=== PATIENT | male | born 1970 | race African-American/Black ===

== ENCOUNTER 2018-04-20 12:33 | Inpatient (IN) | payer OTHER ==
[2018-04-20 13:18] VITALS: BMI 27.1
--- NOTE | 2018-04-20 15:48 | HP ---
CIWA Score - CIWA Score Nausea/Vomitin Muscle Tremors: 3 Anxiety: 3 Agitation: 3 Paroxysmal Sweats: 1-Minimal Palms Moist Orientation: 0-Oriented Tacttile Disturbances: 1-Very Mild Itch/Numbness Auditory Disturbances: 1-Very Mild Visual Disturbances: 0-None Headache: 2-Mild CIWA-Ar Total Score: 17 Admission ROS BHS - HPI Chief Complaint: i need help to stop drinking alcohol and cocaine Allergies/Adverse Reactions: Allergies Allergy/AdvReac Type Severity Reaction Status Date / Time No Known Allergies Allergy Verified 04/20/18 15:37 History of Present Illness: this 47 years old male with alcohol and cocaine dependence,seeking detox, withdrawal symptom,last detox in 2007 unknown facility in the [place] syncope alcohol related mmtp 70 mgs/day,last medicated today weight loss longest period of sobriety 7 years anxiety,depression,insomnia Exam Limitations: No Limitations - Ebola screening Have you traveled outside of the country in the last 21 days: No Have you had contact with anyone from an Ebola affected area: No Have you been sick,other than usual withdrawal symptoms: No Do you have a fever: No - Review of Systems Constitutional: Loss of Appetite, Malaise, Night Sweats, Changes in sleep, Weakness, Unintentional Wgt. Loss EENT: reports: Nose Congestion Respiratory: reports: No Symptoms reported Cardiac: reports: No Symptoms Reported GI: reports: Diarrhea, Nausea, Poor Appetite, Abdominal cramping : reports: No Symptoms Reported Musculoskeletal: reports: Back Pain, Joint Pain, Muscle Pain Integumentary: reports: Dryness Endocrine: reports: No Symptoms Reported Hematology: reports: No Symptoms Reported Psychiatric: reports: Judgement Intact, Mood/Affect Appropiate, Orientated x3 ( insomnia), Anxious, Depressed Patient History - Patient Medical History Hx Anemia: No Hx Asthma: No Hx Chronic Obstructive Pulmonary Disease (COPD): No Hx Cancer: No Hx Cardiac Disorders: No Hx Congestive Heart Failure: No Hx Hypertension: No Hx Hypercholesterolemia: Yes (no med) Hx Pacemaker: No HX Cerebrovascular Accident: No Hx Seizures: No Hx Dementia: No Hx Diabetes: No Hx Gastrointestinal Disorders: No Hx Liver Disease: No Hx Genitourinary Disorders: No Hx Sexually Transmitted Disorders: No Hx Renal Disease (ESRD): No Hx Thyroid Disease: No Hx Human Immunodeficiency Virus (HIV): No (last 10/14 negative) Hx Hepatitis C: No Hx Depression: Yes (anxiety) Hx Suicide Attempt: No Hx Bipolar Disorder: No Hx Schizophrenia: No Other Medical History: no suicidal,no homicidal - Patient Surgical History Past Surgical History: Yes Other Surgical History: removal of cyst of scalp and face - PPD History Documented Results: Negative w/o proof PPD to be Administered?: Yes - Smoking Cessation Smoking history: Current every day smoker Have you smoked in the past 12 months: Yes Aproximately how many cigarettes per day: 10 Cigars Per Day: 0 Hx Chewing Tobacco Use: No Initiated information on smoking cessation: Yes 'Breaking Loose' booklet given: 04/20/18 - Substance & Tx. History Hx Alcohol Use: Yes Hx Substance Use: Yes Substance Use Type: Alcohol, Cocaine Hx Substance Use Treatment: Yes (2007 unknown facility in the [place]) - Substances Abused Alcohol Route: Oral Frequency: Daily Amount used: 6PK BEER Age of first use: 15 Date of Last Use: 04/19/18 Crack Route: Smoking Frequency: Daily Amount used: $50 Age of first use: 18 Date of Last Use: 04/19/18 Family Disease History - Family Disease History Family Disease History: Other: Father (alcohol,dsa,), Mother () Admission Physical Exam BHS - Vital Signs Vital Signs: Vital Signs - 24 hr 04/20/18 13:16 Temperature 98.8 F Pulse Rate 83 Respiratory 20 Rate Blood Pressure 141/86 - Physical General Appearance: Yes: Moderate Distress, Tremorous, Irritable, Sweating, Anxious HEENTM: Yes: Normal ENT Inspection, ZECHARIAH, Pharynx Normal Respiratory: Yes: Lungs Clear, Normal Breath Sounds, No Respiratory Distress Neck: Yes: Within Normal Limits, Supple, Trachea in good position Breast: Yes: Within Normal Limits Cardiology: Yes: Within Normal Limits, Regular Rhythm, Regular Rate, S1, S2 Abdominal: Yes: Within Normal Limits, Normal Bowel Sounds, Non Tender, Flat, Soft Genitourinary: Yes: Within Normal Limits Back: Yes: Muscle Spasm Musculoskeletal: Yes: Back pain, Muscle Pain Extremities: Yes: Tremors Neurological: Yes: facetor II-XII NML intact, Fully Oriented, Alert, Motor Strength 5/5 Integumentary: Yes: Dry Lymphatic: Yes: Within Normal Limits - Diagnostic (1) Alcohol dependence with uncomplicated withdrawal Current Visit: Yes Status: Acute (2) Cocaine dependence Current Visit: Yes Status: Acute (3) Methadone maintenance therapy patient Current Visit: Yes Status: Acute (4) Nicotine dependence Current Visit: Yes Status: Acute Cleared for Admission [facility] - Detox or Rehab [facility] Level of Care: Medically Managed Detox Regimen/Protocol: Librium [facility] Breath Alcohol Content Breath Alcohol Content: 0 Urine Drug Screen - Results Drug Screen Negative: No Urine Drug Screen Results: LALY-Cocaine, OPI-Opiates, MTD-Methadone
[2018-04-20] MEDS ORDERED: ACETAMINOPHEN 325 MG TABLET (FP) PO PRN (16:02)
[2018-04-20] MEDS ORDERED: MENTHOL/PHENOL 1 EACH UD MM PRN (16:02)
[2018-04-20] MEDS ORDERED: LOPERAMIDE HCL 2 MG CAPSULE PO PRN (16:02)
[2018-04-20] MEDS ORDERED: IBUPROFEN 400 MG TABLET (FP) PO PRN (16:02)
[2018-04-20] MEDS ORDERED: hydrOXYzine PAMOATE 50 MG CAPSULE (FP) PO PRN (16:02)
[2018-04-20] MEDS ORDERED: MAG HYDROX/AL HYDROX/SIMETH 30 ML UNIT-DOSE CUP PO PRN (16:02)
[2018-04-20] MEDS ORDERED: MAGNESIUM CITRATE 300 ML BOTTLE PO PRN (16:02)
[2018-04-20] MEDS ORDERED: MAGNESIUM HYDROX 2400MG/30ML ORAL SUSPENSION 30 ML CUP PO PRN (16:02)
[2018-04-20] MEDS ORDERED: chlordiazePOXIDE HCL 25 MG CAPSULE PO PRN (16:02)
[2018-04-20] MEDS ORDERED: P-EPHED 60MG/TRIPROLIDI 2.5MG TABLET PO PRN (16:02)
[2018-04-20] MEDS ORDERED: guaiFENesin/D-METHORPHAN HB 10 ML UNIT-DOSE CUPS PO PRN (16:02)
[2018-04-20] MEDS ORDERED: chlordiazePOXIDE HCL 25 MG CAPSULE PO ONE (16:30)
[2018-04-20] MEDS: chlordiazePOXIDE HCL 25 MG CAPSULE PO SCH ×2 (17:42→22:27)
[2018-04-20] MEDS ORDERED: MELATONIN 5 MG TABLETS PO PRN (22:00)
[2018-04-20] MEDS: THIAMINE HCL 100 MG TABLET (FP) PO SCH (22:29)
[2018-04-20 22:39] LABS: URINE APPEARANCE SLCLOUDY; URINE BILIRUBIN NEGATIVE (<2.0 mg/dL); URINE COLOR YELLOW; URINE GLUCOSE (UA) NEGATIVE (NEGATIVE); URINE KETONE NEGATIVE (NEGATIVE); URINE LEUK ESTERASE NEGATIVE (NEGATIVE); URINE NITRITE NEGATIVE (NEGATIVE); URINE PROTEIN NEGATIVE (NEGATIVE); URINE UROBILINOGEN NEGATIVE mg/dL (0.2-1.0)
[2018-04-21] MEDS: chlordiazePOXIDE HCL 25 MG CAPSULE PO SCH ×4 (06:14→22:24)
[2018-04-21 10:08] LABS: HEMATOCRIT 39.3 % (35.4-49); MCH 30.6 pg (25.7-33.7); MCHC 32.9 g/dl (32.0-35.9); MEAN CELL VOLUME 92.8 fl (80-96); MEAN PLT VOLUME 7.1 fl (7.5-11.1); PLATELET COUNT 333 K/MM3 (134-434); RBC 4.24 M/mm3 (4.00-5.60); RDW 14.9 % (11.9-15.9); WHITE BLOOD COUNT 8.2 K/mm3 (4.0-10.0)
[2018-04-21] MEDS: PRENATAL VITAMINS W/ FOLIC ACID TABLET (FP) PO SCH (10:08)
[2018-04-21 10:19] LABS: ALBUMIN 3.3 g/dl (3.4-5.0); ANION GAP 9 (8-16); BILIRUBIN,TOTAL 0.1 mg/dL (0.2-1.0); BLOOD UREA NITROGEN 17 mg/dL (7-18); CALCIUM 8.4 mg/dL (8.5-10.1); CHLORIDE 108 mmol/L (98-107); CO2 25 mmol/L (21-32); GLUCOSE,RANDOM 160 mg/dL (74-106); POTASSIUM 3.9 mmol/L (3.5-5.1); SGOT/AST 11 U/L (15-37); SGPT/ALT 20 U/L (12-78); SODIUM 142 mmol/L (136-145); TOT PROT 6.7 g/dl (6.4-8.2)
[2018-04-21 10:21] LABS: ALK PHOS 91 U/L (45-117)
--- NOTE | 2018-04-21 11:30 | EKG ---
Test Reason : Blood Pressure : / mmHG Vent. Rate : 068 BPM Atrial Rate : 068 BPM P-R Int : 154 ms QRS Dur : 086 ms QT Int : 386 ms P-R-T Axes : 057 040 037 degrees QTc Int : 410 ms NORMAL SINUS RHYTHM NONSPECIFIC T WAVE ABNORMALITY RSR' OR QR PATTERN IN V1 SUGGESTS RIGHT VENTRICULAR CONDUCTION DELAY ABNORMAL ECG NO PREVIOUS ECGS AVAILABLE Confirmed by FRANCES CHAKRABORTY MD ([id number]) on 04/21/2018 11:29:51 AM Referred By: Confirmed By:FRANCES CHAKRABORTY MD
--- NOTE | 2018-04-21 16:51 | PN ---
S CIWA - CIWA Score Nausea/Vomitin Muscle Tremors: 3 Anxiety: 4-Mod. Anxious/Guarded Agitation: 3 Paroxysmal Sweats: No Perspiration Orientation: 2-Disoriented Date<2 days Tacttile Disturbances: 2-Mild Itch/Numbness/Burn Auditory Disturbances: 0-None Visual Disturbances: 0-None Headache: 0-None Present CIWA-Ar Total Score: 17 BHS Progress Note (SOAP) Subjective: Nausea, Tremors, Anxious. Objective: PATIENT A & O X 2 (UNCERTAIN ABOUT CURRENT DAY / DATE). PATIENT OBSERVED AMBULATING ON UNIT. NO ACUTE DISTRESS. 04/21/18 16:52 Vital Signs Temperature 98.1 F 04/21/18 13:57 Pulse Rate 71 04/21/18 13:57 Respiratory Rate 16 04/21/18 13:57 Blood Pressure 133/71 04/21/18 13:57 O2 Sat by Pulse Oximetry (%) Laboratory Tests 04/20/18 04/21/18 04/21/18 22:30 07:50 07:50 WBC 8.2 RBC 4.24 Hgb 13.0 Hct 39.3 MCV 92.8 MCH 30.6 MCHC 32.9 RDW 14.9 Plt Count 333 MPV 7.1 L Sodium Potassium Chloride Carbon Dioxide Anion Gap BUN Creatinine Creat Clearance w eGFR Random Glucose Calcium Total Bilirubin AST ALT Alkaline Phosphatase Total Protein Albumin Urine Color Yellow Urine Appearance Slcloudy Urine pH 5.0 Ur Specific [place] 1.029 Urine Protein Negative Urine Glucose (UA) Negative Urine Ketones Negative Urine Blood Negative Urine Nitrite Negative Urine Bilirubin Negative Urine Urobilinogen Negative Ur Leukocyte Esterase Negative RPR Titer HIV 1&2 Antibody Screen Negative HIV P24 Antigen Negative 04/21/18 04/21/18 07:50 07:50 WBC RBC Hgb Hct MCV MCH MCHC RDW Plt Count MPV Sodium 142 Potassium 3.9 Chloride 108 H Carbon Dioxide 25 Anion Gap 9 BUN 17 Creatinine 1.0 Creat Clearance w eGFR > 60 Random Glucose 160 H Calcium 8.4 L Total Bilirubin 0.1 L AST 11 L ALT 20 Alkaline Phosphatase 91 Total Protein 6.7 Albumin 3.3 L Urine Color Urine Appearance Urine pH Ur Specific [place] Urine Protein Urine Glucose (UA) Urine Ketones Urine Blood Urine Nitrite Urine Bilirubin Urine Urobilinogen Ur Leukocyte Esterase RPR Titer Nonreactive HIV 1&2 Antibody Screen HIV P24 Antigen LABS NOTED. Assessment: 04/21/18 16:53 WITHDRAWAL SYMPTOMS. Plan: CONTINUE DETOX. BGM ACBK FOR ELEVATED ADMISSION RANDOM GLUCOSE LEVEL.
--- NOTE | 2018-04-21 17:07 | CONSULT ---
[facility] Psychiatric Consult - Data Date of interview: 04/21/18 Admission source: [facility] Identifying data: First admission to [facility] for this 47 y/o AA male seeking detox treatment on for opioid,cocaine (crack) and alcohol dependence.Patient is a common-law ,a father of eight,homeless, unemployed and supported on Public Assistance. Substance Abuse History: Confirmed by patient in this session.Smoking history: Current every day smoker. Have you smoked in the past 12 months: Yes. Aproximately how many cigarettes per day: 10. Cigars Per Day: 0. Hx Chewing Tobacco Use: No. Initiated information on smoking cessation: Yes. 'Breaking Loose' booklet given: 04/20/18. - Substance & Tx. History. Hx Alcohol Use: Yes. Hx Substance Use: Yes. Substance Use Type: Alcohol, Cocaine. Hx Substance Use Treatment: Yes (2007 unknown facility in the [place]). - Substances Abused. Alcohol. Route: Oral. Frequency: Daily. Amount used: 6PK BEER. Age of first use: 15. Date of Last Use: 04/19/18. Crack. Route : Smoking. Frequency: Daily. Amount used: $50. Age of first use: 18. Date of Last Use: 04/19/18 Medical History: Dyslipidemia and a history of surgical excision of cysts (face + scalp). Psychiatric History: Patient denies history of psychiatric hospitalizations or suicide attempts.Mr Goodman is currently on methadone maintenance (70 mg/day). Physical/Sexual Abuse/Trauma History: Patient denies. Additional Comment: Urine Drug Screen Results: LALY-Cocaine, OPI-Opiates, MTD- Methadone.Noted. Mental Status Exam - Mental Status Exam Alert and Oriented to: Time, Place, Person Cognitive Function: Good Patient Appearance: Well Groomed Mood: Withdrawn, Hopeful Affect: Appropriate, Normal Range Patient Behavior: Fatigued, Appropriate, Cooperative Speech Pattern: Clear Voice Loudness: Normal Thought Process: Intact, Goal Oriented Thought Disorder: Not Present Hallucinations: Denies Suicidal Ideation: Denies Homicidal Ideation: Denies Insight/Judgement: Poor Sleep: Poorly, Difficulty falling asleep Appetite: Good Muscle strength/Tone: Normal Gait/Station: Normal Psychiatric Findings - Problem List ([place] 1, 2,3) (1) Opioid dependence on agonist therapy Status: Acute (2) Alcohol dependence with uncomplicated withdrawal Status: Acute (3) Cocaine dependence Status: Chronic Qualifiers: Substance use status: uncomplicated Qualified Code(s): F14.20 - Cocaine dependence, uncomplicated (4) Nicotine dependence Status: Chronic Qualifiers: Nicotine product type: cigarettes Substance use status: uncomplicated Qualified Code(s): F17.210 - Nicotine dependence, cigarettes, uncomplicated (5) Insomnia Status: Acute - Initial Treatment Plan Initial Treatment Plan: Psychoeducation.Sleep hygiene.Detoxification in progress.Insomnia is addressed with melatonin 5 mg po hs prn.Side effects/ benefits revisited with the patient.Mr Goodman agrees to this careplan.Observation.
[2018-04-21] MEDS: THIAMINE HCL 100 MG TABLET (FP) PO SCH (22:24)
[2018-04-22] MEDS: chlordiazePOXIDE HCL 25 MG CAPSULE PO SCH ×2 (06:06→10:24)
[2018-04-22] MEDS: PRENATAL VITAMINS W/ FOLIC ACID TABLET (FP) PO SCH (10:24)
--- NOTE | 2018-04-22 16:22 | PN ---
S CIWA - CIWA Score Nausea/Vomitin Muscle Tremors: 3 Anxiety: 4-Mod. Anxious/Guarded Agitation: 2 Paroxysmal Sweats: No Perspiration Orientation: 0-Oriented Tacttile Disturbances: 1-Very Mild Itch/Numbness Auditory Disturbances: 2-Mild Harshness/Frighten Visual Disturbances: 1-Very Mild Sensitivity Headache: 0-None Present CIWA-Ar Total Score: 16 BHS Progress Note (SOAP) Subjective: Nausea, Tremors, Anxious, Fatigue. Objective: PATIENT A & O X 3, OBSERVED AMBULATING ON UNIT. NO ACUTE DISTRESS. 04/22/18 16:19 Vital Signs Temperature 98.5 F 04/22/18 14:04 Pulse Rate 88 04/22/18 14:04 Respiratory Rate 20 04/22/18 14:04 Blood Pressure 134/69 04/22/18 14:04 O2 Sat by Pulse Oximetry (%) Laboratory Tests 04/20/18 04/21/18 04/21/18 22:30 07:50 07:50 WBC 8.2 RBC 4.24 Hgb 13.0 Hct 39.3 MCV 92.8 MCH 30.6 MCHC 32.9 RDW 14.9 Plt Count 333 MPV 7.1 L Sodium Potassium Chloride Carbon Dioxide Anion Gap BUN Creatinine Creat Clearance w eGFR POC Glucometer Random Glucose Calcium Total Bilirubin AST ALT Alkaline Phosphatase Total Protein Albumin Urine Color Yellow Urine Appearance Slcloudy Urine pH 5.0 Ur Specific [place] 1.029 Urine Protein Negative Urine Glucose (UA) Negative Urine Ketones Negative Urine Blood Negative Urine Nitrite Negative Urine Bilirubin Negative Urine Urobilinogen Negative Ur Leukocyte Esterase Negative RPR Titer HIV 1&2 Antibody Screen Negative HIV P24 Antigen Negative 04/21/18 04/21/18 04/22/18 07:50 07:50 06:04 WBC RBC Hgb Hct MCV MCH MCHC RDW Plt Count MPV Sodium 142 Potassium 3.9 Chloride 108 H Carbon Dioxide 25 Anion Gap 9 BUN 17 Creatinine 1.0 Creat Clearance w eGFR > 60 POC Glucometer 220 Random Glucose 160 H Calcium 8.4 L Total Bilirubin 0.1 L AST 11 L ALT 20 Alkaline Phosphatase 91 Total Protein 6.7 Albumin 3.3 L Urine Color Urine Appearance Urine pH Ur Specific [place] Urine Protein Urine Glucose (UA) Urine Ketones Urine Blood Urine Nitrite Urine Bilirubin Urine Urobilinogen Ur Leukocyte Esterase RPR Titer Nonreactive HIV 1&2 Antibody Screen HIV P24 Antigen LABS NOTED. Assessment: 04/22/18 16:20 WITHDRAWAL SYMPTOMS. Plan: CONTINUE DETOX. INCREASE DAILY PO FLUID INTAKE. HGB A1C FOR ELEVATED BGM ACBK AND ELEVATED ADMISSION RANDOM GLUCOSE LEVEL.
[2018-04-22] MEDS: chlordiazePOXIDE 5 MG CAPSULE PO SCH ×2 (17:52→22:12)
[2018-04-22] MEDS: THIAMINE HCL 100 MG TABLET (FP) PO SCH (22:12)
[2018-04-23] MEDS: chlordiazePOXIDE 5 MG CAPSULE PO SCH ×2 (06:11→10:50)
[2018-04-23] MEDS ORDERED: METHADONE HCL 10 MG TABLET PO ONE (10:30)
[2018-04-23] MEDS ORDERED: metFORMIN HCL 500 MG TABLET (FP) PO ONE (10:45)
[2018-04-23] MEDS: PRENATAL VITAMINS W/ FOLIC ACID TABLET (FP) PO SCH (10:50)
[2018-04-23] MEDS: INSULIN SLIDING SCALE (NOVOLOG) 1 VIAL SQ SCH ×3 (12:45→18:33)
[2018-04-23] MEDS ORDERED: INSULIN (NOVOLOG) ASPART 100 UNITS/ML 10ML VIAL ONE (12:57)
--- NOTE | 2018-04-23 16:30 | PN ---
BHS Progress Note (SOAP) Subjective: Tremor, chills, sweating Objective: 04/23/18 16:25 Last Vital Signs Temp Pulse Resp BP Pulse Ox 98.1 F 84 20 121/75 04/23/18 09:44 04/23/18 09:44 04/23/18 09:44 04/23/18 09:44 Laboratory Tests 04/20/18 04/21/18 04/21/18 22:30 07:50 07:50 WBC 8.2 RBC 4.24 Hgb 13.0 Hct 39.3 MCV 92.8 MCH 30.6 MCHC 32.9 RDW 14.9 Plt Count 333 MPV 7.1 L Sodium Potassium Chloride Carbon Dioxide Anion Gap BUN Creatinine Creat Clearance w eGFR POC Glucometer Random Glucose Hemoglobin A1c % Calcium Total Bilirubin AST ALT Alkaline Phosphatase Total Protein Albumin Urine Color Yellow Urine Appearance Slcloudy Urine pH 5.0 Ur Specific [place] 1.029 Urine Protein Negative Urine Glucose (UA) Negative Urine Ketones Negative Urine Blood Negative Urine Nitrite Negative Urine Bilirubin Negative Urine Urobilinogen Negative Ur Leukocyte Esterase Negative RPR Titer HIV 1&2 Antibody Screen Negative HIV P24 Antigen Negative 04/21/18 04/21/18 04/22/18 07:50 07:50 06:04 WBC RBC Hgb Hct MCV MCH MCHC RDW Plt Count MPV Sodium 142 Potassium 3.9 Chloride 108 H Carbon Dioxide 25 Anion Gap 9 BUN 17 Creatinine 1.0 Creat Clearance w eGFR > 60 POC Glucometer 220 Random Glucose 160 H Hemoglobin A1c % Calcium 8.4 L Total Bilirubin 0.1 L AST 11 L ALT 20 Alkaline Phosphatase 91 Total Protein 6.7 Albumin 3.3 L Urine Color Urine Appearance Urine pH Ur Specific [place] Urine Protein Urine Glucose (UA) Urine Ketones Urine Blood Urine Nitrite Urine Bilirubin Urine Urobilinogen Ur Leukocyte Esterase RPR Titer Nonreactive HIV 1&2 Antibody Screen HIV P24 Antigen 04/23/18 04/23/18 04/23/18 06:13 07:45 12:54 WBC RBC Hgb Hct MCV MCH MCHC RDW Plt Count MPV Sodium Potassium Chloride Carbon Dioxide Anion Gap BUN Creatinine Creat Clearance w eGFR POC Glucometer 208 206 Random Glucose Hemoglobin A1c % 6.0 Calcium Total Bilirubin AST ALT Alkaline Phosphatase Total Protein Albumin Urine Color Urine Appearance Urine pH Ur Specific [place] Urine Protein Urine Glucose (UA) Urine Ketones Urine Blood Urine Nitrite Urine Bilirubin Urine Urobilinogen Ur Leukocyte Esterase RPR Titer HIV 1&2 Antibody Screen HIV P24 Antigen Labs reviewed: hyperglycemia Assessment: 04/23/18 16:26 Withdrawal symptoms Noted with 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
[2018-04-23] MEDS: chlordiazePOXIDE HCL 10 MG CAPSULE PO SCH ×2 (17:29→22:15)
[2018-04-23] MEDS: metFORMIN HCL 500 MG TABLET (FP) PO SCH (17:29)
[2018-04-23] MEDS: THIAMINE HCL 100 MG TABLET (FP) PO SCH (22:15)
[2018-04-24] MEDS ORDERED: METHADONE HCL 40 MG DISPERSABLE TABLET ONE (05:19)
[2018-04-24] MEDS ORDERED: METHADONE HCL 10 MG TABLET ONE (05:19)
[2018-04-24] MEDS: chlordiazePOXIDE HCL 10 MG CAPSULE PO SCH ×2 (05:20→10:14)
[2018-04-24] MEDS ORDERED: METHADONE HCL 10 MG TABLET PO SCH (06:00)
[2018-04-24] MEDS: metFORMIN HCL 500 MG TABLET (FP) PO SCH (06:58)
[2018-04-24] MEDS: INSULIN SLIDING SCALE (NOVOLOG) 1 VIAL SQ SCH (06:59)
[2018-04-24] MEDS ORDERED: METHADONE 40 MG, METHADONE 30 MG PO SCH (07:00)
[2018-04-24] MEDS ORDERED: INSULIN (NOVOLOG) ASPART 100 UNITS/ML 10ML VIAL ONE (07:05)
[2018-04-24] MEDS: PRENATAL VITAMINS W/ FOLIC ACID TABLET (FP) PO SCH (10:14)
[2018-04-24 10:35] VITALS: BP 125/83; PULSE 86; TEMP 98.1
--- NOTE | 2018-04-24 16:32 | PN ---
S Progress Note (SOAP) Subjective: denies any complaint Objective: 04/24/18 16:30 A & O x 3 Not in distress Vital Signs Temperature 98.1 F 04/24/18 10:33 Pulse Rate 86 04/24/18 10:33 Respiratory Rate 20 04/24/18 10:33 Blood Pressure 125/83 04/24/18 10:33 O2 Sat by Pulse Oximetry (%) Assessment: 04/24/18 16:31 detox safely concluded Plan: for d/c home
--- NOTE | 2018-04-24 16:37 | DS ---
[facility] Detox Discharge Summary Admission Date: 04/20/18 Discharge Date: 04/24/18 - History Additional Comments: Pt being d/c in improved condition No distress noted Will do aftercare by using positive support group, attending AA meetings and f/ u with is PMD Declined prescription for Metformin, states " i am not diabetic" - Physical Exam Results Vital Signs: Vital Signs Temperature 98.1 F 04/24/18 10:33 Pulse Rate 86 04/24/18 10:33 Respiratory Rate 20 04/24/18 10:33 Blood Pressure 125/83 04/24/18 10:33 O2 Sat by Pulse Oximetry (%) Pertinent Admission Physical Exam Findings: withdrawal sx - Treatment Hospital Course: Detox Protocol Followed, Detoxed Safely, Responded well, Discharged Condition Good Patient has Accepted a Rehab Referral to: O/P meetings - Medication Discharge Medications: Ambulatory Orders NK [No Known Home Medication] 04/20/18 - Diagnosis (1) Alcohol dependence with uncomplicated withdrawal Status: Acute (2) Hyperglycemia Status: Acute (3) Opioid dependence on agonist therapy Status: Acute (4) Cocaine dependence Status: Chronic Qualifiers: Substance use status: uncomplicated Qualified Code(s): F14.20 - Cocaine dependence, uncomplicated - AMA Did Patient Leave Against Medical Advice: No
== END 2018-04-24 11:05 | disposition home or self-care (01) | DRG 773 ==
LOC: YASAS 12:33 → Y3N 16:21
PROVIDERS: ADMIT Internal Medicine; ATTEND Internal Medicine
PROC: HZ2ZZZZ Detoxification Services for Substance Abuse Treatment (ICD-10-PCS; principal; 2018-04-20)
DX: F11.20 Opioid dependence, uncomplicated (principal); F10.230 Alcohol dependence with withdrawal, uncomplicated; F14.20 Cocaine dependence, uncomplicated; F17.210 Nicotine dependence, cigarettes, uncomplicated; F41.8 Other specified anxiety disorders; E11.65 Type 2 diabetes mellitus with hyperglycemia; Z79.4 Long term (current) use of insulin; Z79.84 Long term (current) use of oral hypoglycemic drugs; G47.00 Insomnia, unspecified
CPT/HCPCS: 36415; 80053; 81003; 82962; 83036; 85027; 86593; 87389; 93005; 93010